=== PATIENT | male | born 1995 | race Caucasian/White ===

== ENCOUNTER 2019-01-28 13:25 | Emergency (ER) | payer SELFPAY ==
[~2019-01-28] VITALS: Ht 193 cm; Wt 81.6 kg
[2019-01-28] MEDS ORDERED: GABA-486 PO (14:13)
[2019-01-28] MEDS ORDERED: CLIN150C17 PO (14:13)
[2019-01-28] MEDS ORDERED: PRD20T PO (14:13)
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
[2019-01-28 14:18] VITALS: BP 149/84
== END 2019-01-28 14:17 | disposition home or self-care (01) ==
LOC: ER FS 13:29
DX: G50.0 Trigeminal neuralgia (principal); K04.7 Periapical abscess without sinus; Z88.0 Allergy status to penicillin; Z88.1 Allergy status to other antibiotic agents; Z88.5 Allergy status to narcotic agent; Z88.8 Allergy status to other drugs, medicaments and biological substances
CPT/HCPCS: 99282